=== PATIENT | male | born 1980 ===

== ENCOUNTER 2018-07-23 11:30 | Observation (INO) | payer OTHER ==
[2018-07-23] MEDS ORDERED: Sodium Chloride 0.9% 1,000 ML IV STA (12:55)
--- NOTE | 2018-07-23 13:10 | ED PDOC ---
HPI: General Adult Time Seen by Provider: 07/23/18 12:45 Chief Complaint (Nursing): ENT Problem Chief Complaint (Provider): Throat Pain History Per: Patient History/Exam Limitations: no limitations Onset/Duration Of Symptoms: Days (x2) Current Symptoms Are (Timing): Still Present Additional Complaint(s): 37 year old male presents to the ED for evaluation of difficulty swallowing for the past two days associated with throat pain radiating from his right neck to his right ear, and chills for the past day. Patient states that one week ago he also had throat pain [place] symptoms, but then the pain came back yesterday. Pain unrelieved with 1g of Tylenol this morning. Otherwise denies cough, nausea, and vomiting. PMD: none provided Past Medical History Reviewed: Historical Data, Nursing Documentation, Vital Signs Vital Signs: Last Vital Signs Temp 97 F L 07/23/18 12:16 Pulse 72 07/23/18 12:16 Resp 18 07/23/18 12:16 BP 102/64 07/23/18 12:16 Pulse Ox 98 07/23/18 12:16 - Medical History PMH: No Chronic Diseases - Surgical History Surgical History: No Surg Hx - Family History Family History: States: Unknown Family Hx - Social History Current smoker - smoking cessation education provided: Yes Alcohol: Social Drugs: Denies - Allergies Allergies/Adverse Reactions: Allergies Allergy/AdvReac Type Severity Reaction Status Date / Time No Known Allergies Allergy Verified 07/23/18 12:16 Review of Systems ROS Statement: Except As Marked, All Systems Reviewed And Found Negative Constitutional: Positive for: Chills ENT: Positive for: Throat Pain (and difficulty swallowing) Respiratory: Negative for: Cough Gastrointestinal: Negative for: Nausea, Vomiting Physical Exam - Reviewed Nursing Documentation Reviewed: Yes Vital Signs Reviewed: Yes - Physical Exam Appears: Positive for: No Acute Distress Head Exam: Positive for: ATRAUMATIC, NORMAL INSPECTION, NORMOCEPHALIC Skin: Positive for: Normal Color, Warm. Negative for: Rash Eye Exam: Positive for: Normal appearance, EOMI, PERRL ENT: Positive for: TM Is/Are (unremarkable bilaterally), Tonsillar Exudate (right sided; none on left side), Tonsillar Swelling (swelling to ride side of palette and right tonsil with erythema; left side normal ) Neck: Positive for: Painless ROM (but some swelling noted to right side of neck) Cardiovascular/Chest: Positive for: Regular Rate, Rhythm Respiratory: Positive for: Normal Breath Sounds. Negative for: Respiratory Distress Neurological/Psych: Positive for: Awake, Alert, Oriented (x3) - Laboratory Results Result Diagrams: 07/23/18 13:20 07/23/18 13:20 - ECG O2 Sat by Pulse Oximetry: 98 (RA) Pulse Ox Interpretation: Normal Medical Decision Making Medical Decision Making: Time: 1250 Initial Impression: throat pain, difficulty swallowing, r/o strep Initial Plan: --CT neck soft tissue IV contrast --BMP --CBC with differential --Decadron 10mg IV --Normal saline IV --Rapid strep swab --Reevaluation 1455 Strep negative. Patient reports improvement in throat pain from the Decadron. Pending CT report. 154 CT FINDINGS: NASOPHARYNX: Unremarkable. SUPRAHYOID NECK: There is a irregularly shaped low-attenuation collection in the right palatine tonsil measuring approximately 2.0 x 2.4 by 3.1 cm. Most likely this represents an abscess. There is no significant peripheral enhancement. Immediately caudal to this abscess there is a much smaller abscess measuring 7 mm in diameter, demonstrating clear peripheral enhancement. The left palatine tonsil, adenoidal and lingual tonsils are unremarkable in appearance. The epiglottis is unremarkable. INFRAHYOID NECK: Unremarkable larynx, hypopharynx, and supraglottic space. Vocal cords intact. MASS: None. GLANDS: Parotid and submandibular glands unremarkable. Normal size thyroid gland, without nodule. LYMPH NODES: There is an enlarged right level 2 lymph node measuring 15 mm in short axis. There are shotty subcentimeter level 1 and 2 lymph nodes bilaterally. There are posterior triangle nodes bilaterally. These are all less than 1 cm in short axis. CERVICAL SPINE: No fracture or focal lesion. VASCULAR STRUCTURES: Unremarkable. OTHER FINDINGS: None. IMPRESSION: 3.1 cm abscess of the right palatine tonsil with a 7 mm abscess immediately caudal. Cervical lymphadenopathy. No additional abnormality. 1550 Unasyn 3gm IVPB ordered in light of CT findings which were discussed with patient. Will additionally discuss case with Dr. Robbins and most likely contact Dr. Rodriguez, ENT on-call. 160[address] Call was made to Dr. Rodriguez's office but was unable to reach him as he is on vacation. 17:[address] Aly, who will come to the ER to examine the patient. 19:32: Dr. Logan at bedside. 20:[address] Logan for 24 hour surveillance. Patient will be given IV, antibiotics, and steroids. Patient states that he feels better, he is resting comfortably, is in no respiratory distress. Scribe Attestation: Documented by Motnse Muhammad, acting as a scribe for Remedios Sneed APN. Provider Scribe Attestation: All medical record entries made by the Scribe were at my direction and personally dictated by me. I have reviewed the chart and agree that the record accurately reflects my personal performance of the history, physical exam, medical decision making, and the department course for this patient. I have also personally directed, reviewed, and agree with the discharge instructions and disposition. Scribe Attestation: Documented by Jacobo David, acting as a scribe for Remedios Sneed APN. Provider Scribe Attestation: All medical record entries made by the Scribe were at my direction and personally dictated by me. I have reviewed the chart and agree that the record accurately reflects my personal performance of the history, physical exam, medical decision making, and the department course for this patient. I have also personally directed, reviewed, and agree with the discharge instructions and disposition. Disposition - Clinical Impression Clinical Impression: Peritonsillar abscess - Patient ED Disposition Is Patient to be Admitted: Yes Counseled Patient/Family Regarding: Diagnosis - Disposition Disposition Time: 20:52 Condition: STABLE - Pt Status Changed To: Hospital Disposition Of: Observation - POA Present On Arrival: None
[2018-07-23 13:40] LABS: BASO # 0.1 K/uL (0.0-0.2); BASO % 0.5 % (0.0-2.0); EOS # 0.1 K/uL (0.0-0.7); EOS % 0.7 % (0.0-4.0); HEMOGLOBIN 13.1 g/dL (12.0-18.0); LYMPH # 1.9 K/uL (1.0-4.3); LYMPH % 10.5 % (20.0-40.0); MEAN CELL VOLUME 89.2 fl (80.0-94.0); MEAN CORPUSCULAR HEMOGLOBIN 28.7 pg (27.0-31.0); MEAN CORPUSCULAR HGB CONC 32.1 g/dL (33.0-37.0); MEAN PLATELET VOLUME 7.4 fl (7.2-11.7); MONO # 1.4 K/uL (0.0-0.8); MONO % 7.8 % (0.0-10.0); NEUT # 14.8 K/uL (1.8-7.0); NEUT % 80.5 % (50.0-75.0); NRBC % 0.1 % (0.0-0.0); RBC 4.59 Mil/uL (4.40-5.90); WHITE BLOOD COUNT 18.3 K/uL (4.8-10.8)
[2018-07-23 13:45] LABS: BLOOD UREA NITROGEN 11 mg/dl (9-20); CALCIUM 9.6 mg/dL (8.4-10.2); GFR NON-AFRICAN AMERICAN > 60
[2018-07-23] MEDS ORDERED: Sodium Chloride 0.9% 50 ML IV ONE (14:27)
[2018-07-23] MEDS ORDERED: Iohexol 300 100 ML IJ ONE (14:27)
--- NOTE | 2018-07-23 15:44 | CT ---
Date of service: 07/23/2018 PROCEDURE: CT NECK WITH CONTRAST HISTORY: r/o peritonsillar abscess COMPARISON: None available. TECHNIQUE: CT of the neck with intravenous contrast. Coronal and sagittal reformats generated. Intravenous contrast dose: 95 cc Omnipaque 300 Radiation dose: Total exam DLP = 291.97 mGy-cm. This CT exam was performed using one or more of the following dose reduction techniques: Automated exposure control, adjustment of the mA and/or kV according to patient size, and/or use of iterative reconstruction technique. FINDINGS: NASOPHARYNX: Unremarkable. SUPRAHYOID NECK: There is a irregularly shaped low-attenuation collection in the right palatine tonsil measuring approximately 2.0 x 2.4 by 3.1 cm. Most likely this represents an abscess. There is no significant peripheral enhancement. Immediately caudal to this abscess there is a much smaller abscess measuring 7 mm in diameter, demonstrating clear peripheral enhancement. The left palatine tonsil, adenoidal and lingual tonsils are unremarkable in appearance. The epiglottis is unremarkable. INFRAHYOID NECK: Unremarkable larynx, hypopharynx, and supraglottic space. Vocal cords intact. MASS: None. GLANDS: Parotid and submandibular glands unremarkable. Normal size thyroid gland, without nodule. LYMPH NODES: There is an enlarged right level 2 lymph node measuring 15 mm in short axis. There are shotty subcentimeter level 1 and 2 lymph nodes bilaterally. There are posterior triangle nodes bilaterally. These are all less than 1 cm in short axis. CERVICAL SPINE: No fracture or focal lesion. VASCULAR STRUCTURES: Unremarkable. OTHER FINDINGS: None. IMPRESSION: 3.1 cm abscess of the right palatine tonsil with a 7 mm abscess immediately caudal. Cervical lymphadenopathy. No additional abnormality.
[2018-07-23] MEDS ORDERED: Lidocaine 1% w Epi 1:100,000 Inj ONE (18:50)
[2018-07-23] MEDS ORDERED: Acetaminophen-Codeine 300/30 mg Tab PO PRN (20:11)
--- NOTE | 2018-07-23 20:13 | CP.PCM.PN ---
Subjective - Date & Time of Evaluation Date of Evaluation: 07/23/18 Time of Evaluation: 20:07 - Subjective Subjective: see below Objective - Vital Signs/Intake and Output Vital Signs (last 24 hours): Temp Pulse Resp BP Pulse Ox 97 F L 72 18 102/64 98 07/23/18 12:16 07/23/18 12:16 07/23/18 12:16 07/23/18 12:16 07/23/18 19:32 - Labs Labs: 07/23/18 13:20 07/23/18 13:20 Assessment and Plan - Assessment and Plan (Free Text) Assessment: ENT Admit Note CC sore throat HPI 37 y/o male with one week of worsening right throat pain and decreased oral intake. no h/o throat problems. PMH denies NKDA Meds denies Exam awake, alert, comfortable voice normal neck soft, tender LAD right side oc/op: no trismus; right soft palate swollen, fluctuant, red and tender. CT reviewed - shows large right [employer] SEWER Procedure Note 54205 I&D [employer] Informed consent obtained. Right soft palate anesthetized with Cetacaine spray followed by Lidocaine 1% with Epi 1:100k. Using 15 blade, small incision was m lamar at point of maximal fluctuance. Significant amount of pus drained out, which patient promptly spit out. Incsion then gently spread with sterile tonsil clamp, and abscess cavity gently probed with steril q-tip to ensure no loculations. Abscess cavity then flushed with sterile saline with angiocath technique until clear. Minimal expected bleeding, which self-resolved. Patient tolerated procedure well. No complications. Impression right [employer] SEWER dehydration Admit for IV abx, IV steroids advance diet if feel better in 24 hours, i will d/c home on oral abx d/w patient importance of taking all abx following d/c home. also told him to take probiotics to prevent diarrhea. also told him to return to ER if sx recur following discharge
[2018-07-24] MEDS ORDERED: Acetaminophen-Codeine 300/30 mg Tab ONE (05:45)
[2018-07-24 12:08] VITALS: PULSE 82
[2018-07-24 16:24] VITALS: BP 103/56; RESP 16; TEMP 97.9; O2SAT 98
== END 2018-07-24 18:28 | disposition home or self-care (01) ==
LOC: H.ER 11:30 → H.ERHOLD 20:03 → H.TEL 07-24 06:38
PROVIDERS: ADMIT Otolaryngology; ATTEND Otolaryngology
DX: J36 Peritonsillar abscess (principal); B95.0 Streptococcus, group A, as the cause of diseases classified elsewhere; E86.0 Dehydration; R59.1 Generalized enlarged lymph nodes; F17.200 Nicotine dependence, unspecified, uncomplicated
CPT/HCPCS: 42700; 70491; 80048; 85025; 87070; 87206; 87430; 96365; 96366; 96375; 96376; 99285; G0378; J0295; J1100; J7030; Q9967